=== PATIENT | female | born 1960 | race Caucasian/White ===

== ENCOUNTER 2020-02-17 13:30 | Inpatient (IN) | payer OTHER ==
[~2020-02-17] VITALS: Ht 172.7 cm; Wt 87.5 kg
[2020-02-17 10:11] VITALS: BP 179/89
[2020-02-17 14:12] LABS: APPEARANCE,URINE Clear (CLEAR); BILIRUBIN,URINE Negative (NEGATIVE); COLOR,URINE Yellow (YELLOW); GLUCOSE, URINE (UA) Negative (NEGATIVE); KETONES,URINE Negative (NEGATIVE); LEUKOCYTE ESTERASE ,URINE Negative (NEGATIVE); NITRATE,URINE Negative (NEGATIVE); OCCULT BLOOD,URINE Negative (NEGATIVE); PH,URINE 6.5 (5.0-8.0); PROTEIN,URINE Negative (NEGATIVE); UROBILINOGEN,URINE 0.2 mg/dL (0.2-1.0)
[2020-02-19 11:09] VITALS: BP 179/89
[2020-02-19] MEDS ORDERED: ASPI-556 PO (12:04)
[2020-02-19] MEDS ORDERED: HYDR12.54 PO (12:04)
[2020-02-19] MEDS ORDERED: LORA10TA7 PO (12:04)
[2020-02-19] MEDS ORDERED: MULT-1192 PO (12:04)
[2020-02-19] MEDS ORDERED: GLUC-252 PO (12:04)
[2020-02-19] MEDS ORDERED: EZET10TA48 PO (12:04)
[2020-02-19] MEDS ORDERED: METO-391 PO (12:04)
[2020-02-19] MEDS ORDERED: AMIT50TA3 PO (12:04)
[2020-02-19] MEDS ORDERED: ROSU20TA31 PO (12:04)
[2020-02-19] MEDS ORDERED: OMEP20CA12 PO (12:04)
[2020-02-19] MEDS ORDERED: GABA600T10 PO (12:04)
[2020-02-19] MEDS ORDERED: HYDR-4064 PO (12:04)
[2020-02-19] MEDS ORDERED: OMEG1CAP2 PO (12:04)
[2020-02-22] VITALS (23 sets, daily range): BP systolic 107–162; BP diastolic 40–85
[2020-02-22] MEDS ORDERED: LACTATED RINGERS 1000ML 1,000 ML IV ONE (06:39)
[2020-02-22] MEDS ORDERED: CLINDAMYCIN 900 MG/D5% WATER 50 ML IV ONE (06:39)
[2020-02-22] MEDS ORDERED: VANCOMYCIN HCL 1 GM VIAL ONE (07:22)
[2020-02-22] MEDS: VANCOMYCIN 1.5 GM in SODIUM CHLORIDE 0.9% 250 ML IV SCH (07:29)
[2020-02-22] MEDS ORDERED: ROPIVACAINE 0.5% 5MG/ML 30ML IJ ONE (07:41)
[2020-02-22] MEDS ORDERED: SUCCINYLCHOLINE CHLORIDE 20 MG/ML 10 ML VIAL ONE (07:43)
[2020-02-22] MEDS ORDERED: ROCURONIUM 10MG/1ML SYR 10 MG/ML ML ONE (07:43)
[2020-02-22] MEDS ORDERED: LIDOCAINE PF 2% 5ML ABBOJECT ONE (07:43)
[2020-02-22] MEDS ORDERED: FENTANYL CITRATE PF 50 MCG/1 ML 2ML VIAL ONE ×2 (07:43→11:05)
[2020-02-22] MEDS ORDERED: PROPOFOL 10 MG/ML 20ML VIAL IV ONE (07:43)
[2020-02-22] MEDS ORDERED: CLINDAMYCIN PHOSPHATE 150 MG/ML 6ML VIAL ONE (07:56)
[2020-02-22] MEDS ORDERED: EPHEDRINE SULFATE 50 MG/ML AMPULE ONE (08:21)
[2020-02-22] MEDS ORDERED: TRANEXAMIC ACID 1000MG/10ML ONE ×2 (08:37→11:39)
[2020-02-22] MEDS ORDERED: PHENYLEPHRINE HCL 10 MG/ML 1ML VIAL IV ONE (08:40)
[2020-02-22] MEDS ORDERED: SODIUM CHLORIDE 0.9% 10 ML VIAL ONE (08:40)
[2020-02-22] MEDS ORDERED: GLYCOPYRROLATE 1 MG/5 ML SYRINGE ONE (10:33)
[2020-02-22] MEDS ORDERED: NEOSTIGMINE 5MG/5ML SYR IV ONE (10:34)
[2020-02-22] MEDS ORDERED: MEPERIDINE-PF 25 MG/ML SYG ONE ×2 (10:45→11:34)
[2020-02-22] MEDS ORDERED: KETOROLAC TROMETHAMINE 30MG/ML ONE (10:45)
[2020-02-22] MEDS ORDERED: ONDANSETRON HCL 4 MG/2 ML VIAL ONE (10:45)
[2020-02-22] MEDS ORDERED: DiphenhydrAMINE HCL 50 MG/ML VIAL IVP PRN (11:15)
[2020-02-22] MEDS: ACETAMINOPHEN EXTRA STRENGTH 500 MG TABLET PO SCH ×2 (11:15→20:03)
[2020-02-22] MEDS ORDERED: TRAMADOL HCL 50 MG TABLET PO PRN (11:15)
[2020-02-22] MEDS ORDERED: LIDOCAINE HCL-MPF 1% 2ML VIAL IV PRN (11:15)
[2020-02-22] MEDS ORDERED: FERROUS FUMARATE 324 MG TABLET PO PRN (11:15)
[2020-02-22] MEDS ORDERED: CALCIUM CARBONATE 500 MG TABLET PO PRN (11:15)
[2020-02-22] MEDS ORDERED: POTASSIUM CHLORIDE 20 MEQ ERTAB PO PRN (11:15)
[2020-02-22] MEDS ORDERED: ONDANSETRON HCL 4 MG/2 ML VIAL IVP PRN (11:15)
[2020-02-22] MEDS ORDERED: POTASSIUM CHLORIDE 20MEQ/100ML 100 ML IV PRN (11:15)
[2020-02-22] MEDS: SODIUM CHLORIDE 0.9% 1000ML 1,000 ML IV SCH ×2 (11:15→21:26)
[2020-02-22] MEDS ORDERED: OXYCODONE HCL 5 MG TAB PO PRN (11:15)
[2020-02-22] MEDS ORDERED: POTASSIUM CHLORIDE 10% ELIXIR 20 MEQ/15 ML UDCUP PO PRN (11:15)
[2020-02-22] MEDS ORDERED: MORPHINE SULFATE 2 MG/ML 1ML SYG ONE ×2 (11:22→12:00)
--- NOTE | 2020-02-22 12:15 | NUR ---
REPORT RECEIVED FROM PEDRO GOLDBERG (PACU). PATIENT S/P RIGHT TKA UNDER GENERAL ANESTHESIA WITH BLOCK. KATHIA DRESSING INTACT, NO DRAINS NOTED. PATIENT ALLERGIC TO PENICILLIN. PATIENT STABLE AT THIS TIME.
[2020-02-22] MEDS: OXYCODONE HCL 5 MG TAB PO PRN ×3 (12:44→23:46)
[2020-02-22] MEDS: VANCOMYCIN 1GM+NS 250ML 250 ML IV SCH (17:08)
[2020-02-22] MEDS: CLINDAMYCIN 900 MG/D5% WATER 50 ML IV SCH ×2 (17:08→23:46)
[2020-02-22] MEDS ORDERED: GABAPENTIN 300 MG CAPSULE ONE (20:00)
[2020-02-22] MEDS: GABAPENTIN 300 MG CAPSULE PO SCH (20:02)
[2020-02-22] MEDS: CELECOXIB 200 MG CAP PO SCH (20:02)
[2020-02-22] MEDS: AMITRIPTYLINE HCL 25 MG TABLET PO SCH (20:02)
[2020-02-22] MEDS: ASPIRIN 81MG TAB.CHEW PO SCH (20:03)
[2020-02-22] MEDS: KETOROLAC TROMETHAMINE 15MG/ML IV PRN (20:03)
[2020-02-22] MEDS: ATORVASTATIN CALCIUM 40 MG TABLET PO SCH (20:03)
[2020-02-22] MEDS: HYDROMORPHONE 1 MG/1 ML AMP IVP PRN ×2 (21:27→22:39)
[2020-02-23] MEDS: HYDROMORPHONE 1 MG/1 ML AMP IVP PRN ×5 (01:01→06:26)
[2020-02-23] MEDS: ACETAMINOPHEN EXTRA STRENGTH 500 MG TABLET PO SCH ×3 (02:21→18:44)
[2020-02-23] MEDS: VANCOMYCIN 1GM+NS 250ML 250 ML IV SCH (03:56)
[2020-02-23 04:00] VITALS: BP 156/69
[2020-02-23] MEDS: OXYCODONE HCL 5 MG TAB PO PRN ×5 (04:48→21:21)
[2020-02-23] MEDS: VANCOMYCIN 1.5 GM in SODIUM CHLORIDE 0.9% 250 ML IV SCH ×2 (05:46→20:29)
[2020-02-23] MEDS: SODIUM CHLORIDE 0.9% 1000ML 1,000 ML IV SCH (05:46)
[2020-02-23 05:55] LABS: HEMATOCRIT 33.6 % (36-48); MEAN CORPUSCULAR HEMOGLOBIN 30.5 pg (27.0-33.0); MEAN CORPUSCULAR HGB CONC 33.6 g/dL (32.0-36.0); MEAN CORPUSCULAR VOLUME 90.8 fL (79-99); RED BLOOD CELL COUNT(AUTO) 3.7 MIL/uL (4.00-5.50); RED CELL DISTRIBUTION WIDTH 12.6 % (11.0-15.5); WHITE BLOOD COUNT (AUTO) 8.7 K/uL (4.8-10.8)
[2020-02-23 06:00] LABS: CREATININE 0.8 mg/dL (0.5-1.5); POTASSIUM 4.2 mmol/L (3.5-5.1)
[2020-02-23] MEDS: POLYETHYLENE GLYCOL 3350 17 GM POWD.PACK PO SCH (08:14)
[2020-02-23] MEDS: FISH OIL 1000 MG/CAP PO SCH (08:14)
[2020-02-23] MEDS: LORATADINE 10 MG TABLET PO SCH (08:14)
[2020-02-23] MEDS: CELECOXIB 200 MG CAP PO SCH ×2 (08:14→21:19)
[2020-02-23] MEDS: ASPIRIN 81MG TAB.CHEW PO SCH ×2 (08:14→21:19)
[2020-02-23] MEDS: PANTOPRAZOLE SODIUM 40 MG TABLET.DR PO SCH (08:14)
[2020-02-23] MEDS: METOPROLOL SUCCINATE 50 MG TAB.SR.24H PO SCH (08:29)
[2020-02-23] MEDS: HYDROCHLOROTHIAZIDE 25 MG TABLET PO SCH (08:29)
[2020-02-23] MEDS: MULTIVITAMIN TABLET PO SCH (08:29)
[2020-02-23 08:57] VITALS: BP 158/78
[2020-02-23] MEDS: ASPIRIN 81 MG EC TAB PO SCH (09:00)
[2020-02-23] MEDS: EZETIMIBE 10 MG TAB PO SCH (09:54)
[2020-02-23] MEDS: GABAPENTIN 300 MG CAPSULE PO SCH ×3 (09:54→21:18)
[2020-02-23] MEDS: KETOROLAC TROMETHAMINE 15MG/ML IV PRN (10:32)
[2020-02-23 12:01] VITALS: BP 161/85
--- NOTE | 2020-02-23 12:57 | NUR ---
CM NOTE/[place] MEET WITH PATIENT IN ROOM. PER PATIENT, LIVES WITH LIFE PARTNER, IS INDEPENDENT WITH ADLS PRIOR TO SURGERY, HAD USE OF CANE AND BEDSIDE COMMODE, AND FEELS SAFE TO RETURN HOME AFTER HOSPITAL DISCHARGE. PATIENT MADE AWARE OF DR. RODGERS RECOMMENDATIONS FOR HOME HEALTH AND DME: STANDARD WALKER AND 3IN1 BSC. PER PATIENT [facility] FOR [facility] WALK[facility], ALREADY HAS 3IN1 BSC. PRIMARY NURSE, TRUONG CELESTIN, MADE AWARE OF PENDING [facility]. Addendum: 02/23/20 at 1303 by LUIS PULIDO RN CM Amended: Links added.
--- NOTE | 2020-02-23 13:34 | NUR ---
CM NOTE/[facility] AND [facility] AT [place], CONFIRMED WITH FAX RECEIPT. ANASTASIIA AT [place] CALLED, VM LEFT IN REGARDS TO NEW REFERRAL FOR HH AND STANDARD WALKER. CM TO FOLLOW UP ACCORDINGLY.
[2020-02-23 16:47] VITALS: BP 180/78
[2020-02-23 19:50] VITALS: BP 157/85
[2020-02-23] MEDS: ATORVASTATIN CALCIUM 40 MG TABLET PO SCH (21:18)
[2020-02-23] MEDS: AMITRIPTYLINE HCL 25 MG TABLET PO SCH (21:18)
[2020-02-23 23:20] VITALS: BP 127/68
[2020-02-24] MEDS: ACETAMINOPHEN EXTRA STRENGTH 500 MG TABLET PO SCH ×3 (02:04→19:15)
[2020-02-24] MEDS: OXYCODONE HCL 5 MG TAB PO PRN ×2 (02:06→07:52)
[2020-02-24 03:52] VITALS: BP 115/62
[2020-02-24 08:00] VITALS: BP 140/73
[2020-02-24] MEDS: ASPIRIN 81 MG EC TAB PO SCH (09:00)
[2020-02-24] MEDS: EZETIMIBE 10 MG TAB PO SCH (09:00)
[2020-02-24] MEDS: PANTOPRAZOLE SODIUM 40 MG TABLET.DR PO SCH (09:57)
[2020-02-24] MEDS: METOPROLOL SUCCINATE 50 MG TAB.SR.24H PO SCH (09:57)
[2020-02-24] MEDS: ASPIRIN 81MG TAB.CHEW PO SCH (09:59)
[2020-02-24] MEDS: CELECOXIB 200 MG CAP PO SCH (09:59)
[2020-02-24] MEDS: LORATADINE 10 MG TABLET PO SCH (09:59)
[2020-02-24] MEDS: HYDROCHLOROTHIAZIDE 25 MG TABLET PO SCH (10:00)
[2020-02-24] MEDS: FISH OIL 1000 MG/CAP PO SCH (10:00)
[2020-02-24] MEDS: GABAPENTIN 300 MG CAPSULE PO SCH ×2 (10:00→15:00)
[2020-02-24] MEDS: POLYETHYLENE GLYCOL 3350 17 GM POWD.PACK PO SCH (10:00)
[2020-02-24] MEDS: MULTIVITAMIN TABLET PO SCH (10:00)
[2020-02-24] MEDS: KETOROLAC TROMETHAMINE 15MG/ML IV PRN (10:14)
[2020-02-24 11:15] VITALS: BP 130/45
--- NOTE | 2020-02-24 15:42 | NUR ---
CM NOTE/[facility]PR[facility]ED [facility] PER OR, [facility] HOME HEALTH ASSISTED TO PATIENT. CURRENTLY OR WORKING ON STANDARD WALKER ORDER AND ANASTASIIA TO CALL ME BACK WITH INFORMATION. CALLED, PER JAMMIE, PATIENT APPROVED AND SERVICES TO START TOMORROW. PER CHARGE NURSE AND INGRID CARBALLO, OK TO TAKE STANDARD WALKER THAT BELONGS TO HOSPITAL SO THAT PATIENT MAY BE DISCHARGED HOME WITH EQUIPMENT IF DME NOT DELIVERED TODAY, THIS WAS ALSO REPORTED TO PRIMARY NURSE, DAVID VASQUEZ. OR STILL PROCESSING ORDER FOR VAHID MENDOZA TO FOLLOW UP ACCORDINGLY.
[2020-02-24 16:00] VITALS: BP 144/79
--- NOTE | 2020-02-24 16:50 | NUR ---
CM NOTE/PLAN B WALKER [facility] CALLED SEVERAL TIMES TO FOLLOW UP ON PENDING STANDARD WALKER ORDER, NO ANSWER, VM LEFT. HOSPITAL TO LEND STANDARD WALKER TO PATIENT WHILE [facility] PROCESS AND DELIVERS WALKER. VM LEFT AT ID TO DELIVER THEIR WALKER TO PATIENTS HOME SINCE PATIENT IS PENDING DC HOME TODAY. PRIMARY NURSE, DAVID RN, CALLED,NO ANSWER. DIRECTOR OF CLINICAL SERVICES, ROSITA GATICA, CALLED AND RELAYED MESSAGE. PER MEET, WILL LET DAVID KNOW ABOUT STANDARD WALKER.
[2020-02-24] MEDS ORDERED: HYDR-4064 PO (17:04)
[2020-02-24] MEDS ORDERED: ASPI-1005 PO (17:04)
--- NOTE | 2020-02-24 18:42 | NUR ---
DISCHARGE INSTRUCTIONS GIVING AND EXPLAINED UTILIZING TEACH BACK METHOD, PATIENT VERBALIZE UNDERSTANDING. DISCHARGE HOME WITH [facility]. [phone] HEADLEY'S ON MARCH 16 @ 10:15AM. CALL OFFICE FOR ANY CONCERNS 18/03 AT RESUME YOUR PREVIOUS HOME DIET. PLEASE TAKE PRESCRIPTION MEDICATIONS INSTRUCTED. RESUME YOUR PREVIOUS HOME MEDICATIONS IF ANY INSTRUCTED BY STAFF. NURSE TO REMOVE DRESSING ON 03/31/20. CONTINUE DAILY DRESSING CHANGES IF NEEDED AFTER 1ST REMOVAL. MAY SHOWER AND GET DRESSING WET. FOLLOW NURSE INSTRUCTIONS TO PROTECT DRESSING'S BATTERY. AMBULATE TOLERATED WITH THE USE OF CRUTCHES OR WALKER UNTIL YOUR ABLE TO WALK INDEPENDENTLY. WHEN RESTING KEEP YOUR LEG ELEVATED BUT AVOID PLACING PILLOW(S) UNDER YOUR KNEE. IF YOU NEED A REFILL ON YOUR PAIN MEDICATIONS, PLEASE CALL OFFICE A FEW DAYS BEFORE YOU TAKE YOUR LAST PAIN PILL. FOLLOW PHYSICAL THERAPIST RECOMMENDATIONS/INSTRUCTIONS. GAIT TRAINING WITH WALKER AND WEIGHT BEARING TOLERATED. ADVANCE TO CANE PER NURSE/THERAPIST DISCRETION. ACTIVE/PASSIVE ASSISTED FLEXION/EXTENSION EXERCISES TO OPERATIVE KNEE(S). DO QUADRICEP/HAMSTRING STRENGTHENING EXERCISES TO OPERATIVE KNEE(S). MODALITIES PER PHYSICAL THERAPIST DISCRETION. CALL 911 OR GO TO EMERGENCY ROOM IF YOU HAVE ANY CHEST PAIN/DISCOMFORT, SHORTNESS OF BREATH/DIFFICULTY BREATHING OR NEEDED. WOUND CARE DONE. REMOVED OLD KATHIA DRESSING. OLD DRESSING WITH OLD SANGUINEOUS DRAINAGE WITHNO ACTIVE DRAINAGE. NO REDNESS OR TENDERNESS. MILD SWELLING TO AREA. NO DRAINAGE. CLEANSED WITH BETADINE. APPLIED KATHIA DRESSING WITH GREEN LIGHT FLASHING SHOWING WORKING PROPERLY. INSTRUCTIONS GIVEN AND EXPLAINED REGARDING SHOWER AND BATTERY CARE, PT VERBALIZED UNDERSTANDING. Addendum: 02/24/20 at 1922 by DAVID WEST RN REPORT GIVEN TO KVNG GRIFFIN [facility]. PT WAS OFFERED DULCOLAX SUPPOSITORY BUT PT REFUSED. PT WAS OFFERED DULCOLAX TAB BUT PT REFUSED SAYING, "IM PASSING A LOT OF GAS AND I DONT NEED ANY OF THAT. I WILL GO." HAVE ABOWEL MOVEMENT.
[2020-02-24] MEDS: HYDROMORPHONE 1 MG/1 ML AMP IVP PRN (19:56)
[2020-02-25] MEDS ORDERED: BISACODYL 10 MG SUPP.RECT RC PRN (11:15)
== END 2020-02-24 18:42 | disposition home health service (06) | DRG 470 ==
LOC: EDSTATUS 13:30 → DAHIP 02-22 05:53 → 3DH 02-22 11:37
PROVIDERS: ADMIT Orthopaedic Surgery; ATTEND Orthopaedic Surgery
PROC: 0SRC0J9 Replacement of Right Knee Joint with Synthetic Substitute, Cemented, Open Approach (ICD-10-PCS; principal; 2020-02-22 08:00)
PROC: 3E0T3BZ Introduction of Anesthetic Agent into Peripheral Nerves and Plexi, Percutaneous Approach (ICD-10-PCS; 2020-02-22 08:00)
DX: M17.11 Unilateral primary osteoarthritis, right knee (principal); E78.00 Pure hypercholesterolemia, unspecified; G89.29 Other chronic pain; M54.9 Dorsalgia, unspecified; E78.5 Hyperlipidemia, unspecified; K21.9 Gastro-esophageal reflux disease without esophagitis; Z20.828 Contact with and (suspected) exposure to other viral communicable diseases; I10 Essential (primary) hypertension; Z98.1 Arthrodesis status; Z90.710 Acquired absence of both cervix and uterus; Z86.14 Personal history of Methicillin resistant Staphylococcus aureus infection; Z87.891 Personal history of nicotine dependence; Z82.49 Family history of ischemic heart disease and other diseases of the circulatory system; Z83.3 Family history of diabetes mellitus; Z87.440 Personal history of urinary (tract) infections
CPT/HCPCS: 36415; 73562; 80048; 81003; 85027; 87641; 88305; 88311; 97039; G0378; J0330; J1170; J1885; J2001; J2175; J2370; J2405; J2704; J2710; J2795; J3010; J3370; J3490; J7050; J7120; U0003